=== PATIENT | male | born 1980 | race Two or more races ===

== ENCOUNTER 2023-05-03 01:34 | Observation (INO) ==
[2023-05-03 01:53] VITALS: TEMP 98.6; BMI 33.7
[2023-05-03] MEDS ORDERED: ZOFRAN INJ 4 MG VIAL IVP ONE (01:57)
[2023-05-03] MEDS ORDERED: ZOFRAN INJ 4 MG VIAL ONE (01:58)
[2023-05-03 02:02] LABS: BASOPHILS # (AUTO) 0.1 X10^3/uL (0.0-0.1); BASOPHILS % (AUTO) 0.9 % (0.2-1.0); EOSINOPHILS # (AUTO) 0.4 x10^3/uL (0.0-0.2); EOSINOPHILS % (AUTO) 2.6 % (0.9-2.9); HEMATOCRIT 46.2 % (42.0-54.0); HEMOGLOBIN 15.4 g/dL (13.5-18.0); LYMPHOCYTES # (AUTO) 6.7 X10^3/uL (1.3-2.9); LYMPHOCYTES % (AUTO) 39.6 % (21.0-51.0); MEAN CORPUSCULAR HEMOGLOBIN 26.7 pg (27.0-34.0); MEAN CORPUSCULAR HGB CONC 33.4 g/dL (33.0-35.0); MEAN CORPUSCULAR VOLUME 79.8 fL (80.0-100.0); MEAN PLATELET VOLUME 7.6 fL (7.4-11.0); MONOCYTES # (AUTO) 1.2 x10^3/uL (0.3-0.8); MONOCYTES % (AUTO) 6.8 % (0.0-13.0); NEUTROPHILS # (AUTO) 8.4 x10^3/uL (2.2-4.8); NEUTROPHILS % (AUTO) 50.1 % (42.0-75.0); PLATELET COUNT 316 X10^3/uL (150.0-450.0); RED BLOOD COUNT 5.78 X10^6/uL (4.7-6.0); RED CELL DISTRIBUTION WIDTH 13.6 % (11.6-16.5); WHITE BLOOD COUNT 16.9 X10^3/uL (3.6-10.0)
--- NOTE | 2023-05-03 02:08 | EKG ---
Test Reason : Elevated HR Blood Pressure : */* mmHG Vent. Rate : 104 BPM Atrial Rate : 104 BPM P-R Int : 178 ms QRS Dur : 112 ms QT Int : 388 ms P-R-T Axes : 72 -50 84 degrees QTc Int : 510 ms Sinus tachycardia Possible Left atrial enlargement Left anterior fascicular block Left ventricular hypertrophy with repolarization abnormality ( R in aVL , [place] product ) Abnormal ECG No previous ECGs available Confirmed by Osmani Baker ([id number]) on 05/03/2023 8:04:24 AM Referred By: Confirmed By: Osmani Baker
--- NOTE | 2023-05-03 02:10 | DR.HTN ---
HPI Time Seen Time Seen by Provider: 05/03/23 02:09 Primary Care Physician Primary Care Physician: NFD Complaints Chief Complaint Doctors Comments: Patient ingested a dec-9 gummy at approximately 01:00am today and spat it out. He states that he drank water after he spat the gummy out and had a beer eariler in the day. Patient began to feel dizzy,had palpitations,anxiety.When EMS arrived patient had BP 230's/100's. Patient was brought to the ED. He denies: headache,nausea chest pain,syncope,sob. Chief Complaint:: EMS RESPONDED TO A 911 CALL IN WHICH THE PT WAS DIZZY. UPON ARRIVAL TO ED EMS REPORTED THAT PT HAD TAKEN AN EDIBLE THC AND DRANK A BEER EARLIER IN THE DAY. PT NOW ANXIOUS, HYPERTENSIVE AND HAS ELEVATED HR. COVID-19 Coronavirus risk:travel/contact w/high risk person: No Has patient experienced Coronavirus symptoms: No Source History Provided: Patient and EMS Mode of Arrival Mode of Arrival: EMS Timing Onset of Chief Complaint: 05/03/23 PMH PMH Past Medical History: Yes Past Medical History: Hypertension Past Surgical History: No Surgical History: No History Family History History of Family Medical Conditions: No Social History Does any household member use tobacco: No Alcohol Use: Rarely Do you use any recreational Drugs:: No Lives With: Alone Lives Where: Home Travel Risk Coronavirus risk:travel/contact w/high risk person: No Has patient experienced Coronavirus symptoms: No Infectious screening In the last 2 months have you had wt loss of >10#?: NO Have you had fever, night sweats or hemotysis?: No Have you traveled outside the country in the last 6 months?: No Isolation: Standard ROS Review of Systems Constitutional: negative Chills or Fever Eyes: No Symptoms Reported ENTM: No Symptoms Reported Respiratoy: No Symptoms Reported Cardiovascular: Palpitations; negative Chest Pain Gastrointestinal/Abdominal: No Symptoms Reported; negative Nausea or Vomiting Genitourinary: No Symptoms Reported Neurological: No Symptoms Reported, Anxiety, Weakness and Dizziness; negative Headache or Numbness Musculoskeletal: No Symptoms Reported Integumentary: No Symptoms Reported Hematologic/Lymphatic: No Symptoms Reported Endocrine: No Symptoms Reported Psychiatric: No Symptoms Reported All Other Systems: Reviewed and Negative PE Vital Signs Vitals: Vital Signs Temperature 98.6 F Pulse Rate 91 Pulse Rate 94 Pulse Rate 100 Pulse Rate 97 Pulse Rate 96 Pulse Rate 97 Pulse Rate 94 Pulse Rate 86 Pulse Rate 88 Pulse Rate 99 Pulse Rate 102 Pulse Rate 102 Pulse Rate 117 Pulse Rate 129 Pulse Rate 123 Pulse Rate 126 Respiratory Rate 16 Respiratory Rate 40 Respiratory Rate 14 Respiratory Rate 23 Respiratory Rate 15 Respiratory Rate 29 Respiratory Rate 14 Respiratory Rate 0 Respiratory Rate 15 Respiratory Rate 21 Respiratory Rate 20 Respiratory Rate 22 Respiratory Rate 10 Respiratory Rate 34 Respiratory Rate 20 Respiratory Rate 22 Blood Pressure 169/89 Blood Pressure 172/89 Blood Pressure 170/88 Blood Pressure 157/81 Blood Pressure 158/81 Blood Pressure 169/88 Blood Pressure 167/76 Blood Pressure 170/82 Blood Pressure 205/102 Blood Pressure 209/100 Blood Pressure 206/103 Blood Pressure 211/117 Blood Pressure 198/104 O2 Sat by Pulse Oximetry 99 O2 Sat by Pulse Oximetry 99 O2 Sat by Pulse Oximetry 99 O2 Sat by Pulse Oximetry 98 O2 Sat by Pulse Oximetry 96 O2 Sat by Pulse Oximetry 96 O2 Sat by Pulse Oximetry 98 O2 Sat by Pulse Oximetry 96 O2 Sat by Pulse Oximetry 98 O2 Sat by Pulse Oximetry 97 O2 Sat by Pulse Oximetry 97 O2 Sat by Pulse Oximetry 97 O2 Sat by Pulse Oximetry 99 O2 Sat by Pulse Oximetry 100 O2 Sat by Pulse Oximetry 99 O2 Sat by Pulse Oximetry 100 General Limitations: No Limitations General Appearance: Alert and In No Apparent Distress Head Head Exam: Normal Inspection Eyes Eye exam: Normal Appearance ENT ENT Exam: Normal Exam Neck Neck Exam: Normal Inspection Chest Chest Inspection: Normal Inspection Respiratory Respiratory Exam: Normal Lung Sounds Bilat Respiratory Exam: Bilateral: Clear to Auscultation Cardiovascular Cardiovascular Exam: Regular Rate and Tachycardia Abdominal Exam Abdominal Exam: Normal Inspection, Normal Bowel Sounds and Soft Extremities Extremities Exam: Normal Inspection Back Back Exam: Normal Inspection Neurologic Neurological Exam: Alert and Oriented X3 Psychiatric Psychiatric Exam: Normal Affect and Normal Mood Skin Skin Exam: Warm, Dry, Intact and Normal Color MDM Differential Diagnosis Differential Diagnosis: CHF, Hypertensive emergency and Pulmonary edema Differential Diagnosis Comment: electrolyte disorder, Pneumonia COURSE Treatment Treatment: Patient was brought to a monitored room.He recieved K 60 meq Po but would not ingest it initially.Patient was therefore given K 40meq iv small amt. Patient became more alert and drank the K suspension.He has a CXR that revealed a left perihilar infiltrate.Patient was given Rocephin 2 g iv after blood cxs were drawn. Discussed case with Dr Lei who will admit patient to his service for further evaluation. [facility] Labs Reviewed 05/03/23 01:55 05/03/23 01:55 Laboratory: WBC 16.9 X10^3/uL (3.6-10.0) H 05/03/23 01:55 RBC 5.78 X10^6/uL (4.7-6.0) 05/03/23 01:55 Hgb 15.4 g/dL (13.5-18.0) 05/03/23 01:55 Hct 46.2 % (42.0-54.0) 05/03/23 01:55 MCV 79.8 fL (80.0-100.0) L 05/03/23 01:55 MCH 26.7 pg (27.0-34.0) L 05/03/23 01:55 MCHC 33.4 g/dL (33.0-35.0) 05/03/23 01:55 RDW 13.6 % (11.6-16.5) 05/03/23 01:55 Plt Count 316 X10^3/uL (150.0-450.0) 05/03/23 01:55 MPV 7.6 fL (7.4-11.0) 05/03/23 01:55 Neut % (Auto) 50.1 % (42.0-75.0) 05/03/23 01:55 Lymph % (Auto) 39.6 % (21.0-51.0) 05/03/23 01:55 [place] % (Auto) 6.8 % (0.0-13.0) 05/03/23 01:55 Eos % (Auto) 2.6 % (0.9-2.9) 05/03/23 01:55 Baso % (Auto) 0.9 % (0.2-1.0) 05/03/23 01:55 Neut # (Auto) 8.4 x10^3/uL (2.2-4.8) H 05/03/23 01:55 Lymph # (Auto) 6.7 X10^3/uL (1.3-2.9) H 05/03/23 01:55 [place] # (Auto) 1.2 x10^3/uL (0.3-0.8) H 05/03/23 01:55 Eos # (Auto) 0.4 x10^3/uL (0.0-0.2) H 05/03/23 01:55 Baso # (Auto) 0.1 X10^3/uL (0.0-0.1) 05/03/23 01:55 Absolute Nucleated RBC 0.0 /100WBC 05/03/23 01:55 Sodium 137 mmol/L (136-145) 05/03/23 01:55 Corrected Sodium 139 mmol/L (136-145) 05/03/23 01:55 Potassium 2.6 mmol/L (3.5-5.1) L* 05/03/23 01:55 Chloride 99 mmol/L (98-107) 05/03/23 01:55 Carbon Dioxide 26.7 mmol/L (21-32) 05/03/23 01:55 BUN 16 mg/dL (7-18) 05/03/23 01:55 Creatinine 1.16 mg/dL (0.70-1.30) 05/03/23 01:55 Est GFR (MDRD) Af Amer > 60 (>60) 05/03/23 01:55 Est GFR (MDRD) Non-Af > 60 (>60) 05/03/23 01:55 Glucose 179 mg/dL (65-99) H 05/03/23 01:55 Lactic Acid 3.5 mmol/L (0.4-2.0) H 05/03/23 01:55 Calcium 7.8 mg/dL (8.5-10.1) L 05/03/23 01:55 Corrected Calcium TNP 05/03/23 01:55 Magnesium 1.9 mg/dL (2.0-2.9) L 05/03/23 01:55 Total Bilirubin 1.20 mg/dL (0.2-1.0) H 05/03/23 01:55 AST 18 Units/L (15-37) 05/03/23 01:55 ALT 22 Units/L (12-78) 05/03/23 01:55 Alkaline Phosphatase 81 Units/L (46-116) 05/03/23 01:55 Creatine Kinase 263 Units/L (39-308) 05/03/23 01:55 Troponin I High Sens 13.7 ng/L (4.0-60.0) 05/03/23 01:55 Total Protein 7.1 g/dL (6.4-8.2) 05/03/23 01:55 Albumin 4.1 g/dL (3.4-5.0) 05/03/23 01:55 Globulin 3.0 g/dL (2.5-4.5) 05/03/23 01:55 Albumin/Globulin Ratio 1.4 Ratio (1.1-2.1) 05/03/23 01:55 Ethyl Alcohol mg/dL < 3.0 mg/dL (0-19.9) 05/03/23 01:55 Opioid Opioid Risk Tool Age (Marcin box if 16-45): Yes History of Preadolescent Sexual Abuse: No Total: 1 Total Score Risk Category: Low Risk Copyright: [place] ODOM predicting aberrant behaviors Discharge Plan Diagnosis Discharge Problem: Pneumonia, Mild tetrahydrocannabinol (THC) abuse, Acute hypokalemia Discharge Plan Patient Disposition: 09 ADMITTED INPATIENT Condition: Stable Orders to Discharge Patient Discharge Orders: Transfer (Routine); Ordered 05/03/23 Ordered By: Aura Dawn
[2023-05-03 02:15] LABS: ALANINE AMINOTRANSFERASE 22 Units/L (12-78); ALBUMIN 4.1 g/dL (3.4-5.0); ALKALINE PHOSPHATASE 81 Units/L (46-116); ASPARTATE AMINO TRANSFERASE 18 Units/L (15-37); BLOOD UREA NITROGEN 16 mg/dL (7-18); CALCIUM 7.8 mg/dL (8.5-10.1); CARBON DIOXIDE 26.7 mmol/L (21-32); CHLORIDE 99 mmol/L (98-107); COR NA(FOR HYPERGLY) 139 mmol/L (136-145); CREATINE KINASE 263 Units/L (39-308); CREATININE 1.16 mg/dL (0.70-1.30); GLUCOSE 179 mg/dL (65-99); LACTIC ACID 3.5 mmol/L (0.4-2.0); SODIUM 137 mmol/L (136-145); TOTAL PROTEIN 7.1 g/dL (6.4-8.2); eGFR NON BLACK RACES > 60 (>60)
[2023-05-03] MEDS ORDERED: NORMODYNE INJ 20 MG VIAL IVP ONE (02:16)
[2023-05-03] MEDS ORDERED: NORMODYNE INJ 20 MG VIAL ONE (02:17)
[2023-05-03 02:18] LABS: POTASSIUM 2.6 mmol/L (3.5-5.1)
--- NOTE | 2023-05-03 02:19 | RAD ---
HISTORYHTN, CHEST PAINS Relevant Clinical InformationSTUDYCHEST, 1 VIEWCOMPARISONNoneFINDINGSThe trachea is midline. The cardiac silhouette is unremarkable. Left perihilar infiltrate. No pleural effusion or pneumothorax.. The bony thorax is unremarkable.IMPRESSIONLeft perihilar infiltrate..Electronically signed by: Mauri Carvajal (May 03, 2023 02:18:04)
[2023-05-03] MEDS ORDERED: POTASSIUM CHLORIDE LIQ PO ONE (02:23)
[2023-05-03] MEDS ORDERED: POTASSIUM CHLORIDE LIQ ONE (02:25)
[2023-05-03] MEDS ORDERED: APRESOLINE INJ 20 MG VIAL ONE (02:41)
[2023-05-03] MEDS ORDERED: APRESOLINE INJ 20 MG VIAL IVP ONE (02:46)
[2023-05-03] MEDS ORDERED: ROCEPHIN VIAL 2 GRAMS 2 G in NS 100 ML IV 100 ML IV ONE (03:00)
[2023-05-03] MEDS ORDERED: ROCEPHIN VIAL 2 GRAMS ONE (03:03)
[2023-05-03] MEDS ORDERED: NS 100 ML IV 100 ML ONE (03:03)
[2023-05-03] MEDS ORDERED: NS + KCL 40 MEQ/L 1,000 ML IV ONE (03:14)
[2023-05-03] MEDS ORDERED: NS + KCL 40 MEQ/L 1,000 ML IV SCH ×2 (03:22→08:00)
[2023-05-03 05:12] VITALS: RESP 13
[2023-05-03 05:15] LABS: BILIRUBIN,URINE NEGATIVE (NEGATIVE); BLOOD/HEMOGLOBIN,URINE NEGATIVE (NEGATIVE); GLUCOSE, URINE NEGATIVE (NEGATIVE); KETONES,URINE NEGATIVE (NEGATIVE); LEUKOCYTE ESTERASE ,URINE NEGATIVE (NEGATIVE); NITRITES,URINE NEGATIVE (NEGATIVE); PROTEIN,URINE 3+ (NEGATIVE); UROBILINOGEN,URINE NORMAL (NORMAL)
[2023-05-03 05:20] LABS: APPEARANCE,URINE CLEAR (CLEAR); BACTERIA,URINE NEGATIVE /HPF (NEGATIVE); COLOR,URINE YELLOW (YELLOW); RBC,URINE 0-2 /HPF (0-3); SQUAMOUS EPITHELIAL CELL,UR NEGATIVE /HPF (NEGATIVE)
[2023-05-03 05:21] LABS: HYALINE CASTS, URINE RARE /LPF (NEGATIVE)
[2023-05-03] MEDS ORDERED: MAG-OX TAB PO SCH (07:00)
[2023-05-03] MEDS: ROCEPHIN VIAL 2 GRAMS 2 G in NS 100 ML IV 100 ML IV SCH ×2 (07:20→08:12)
[2023-05-03 08:06] VITALS: BP 156/89
[2023-05-03 08:42] LABS: POTASSIUM 3.7 mmol/L (3.5-5.1)
[2023-05-03 08:43] VITALS: PULSE 85; O2SAT 98
[2023-05-03 08:52] LABS: LACTIC ACID 2.5 mmol/L (0.4-2.0)
[2023-05-03] MEDS ORDERED: PULMICORT NEB TX 0.5 MG NEB SCH (09:00)
[2023-05-03] MEDS ORDERED: DUONEB 0.5 MG/3 MG (3 mL) NEB SCH (09:00)
--- NOTE | 2023-05-03 09:30 | DR.SSS ---
SHORT STAY SUMMARY Admission Date Date of Admission: 05/03/23 Discharge Date Discharge Date: 05/03/23 Admission Diagnoses Admission Diagnoses: Mild thc abuse Acute Hypokalemia Pneumonia Hypertension Discharge Diagnoses Discharge Diagnoses: Mild thc abuse Acute Hypokalemia Pneumonia Hypertension Chief Complaint Chief Complaint: Palpitations, Panic attack Fatigue History of Present Illness History of Present Illness: Patient is a 42-year-old male presenting after eating a THC gummy. After eating gummy he started to feel anxious, palpitations, some shortness of breath, and weakness. He became nervous and called 911, EMS brought him to the ER. Past Medical History Past Medical History: Hypertension Past Surgical History Surgical History: No History Allergies Allergies Allergy/AdvReac Type Severity Reaction Status Date / Time No Known Allergies Allergy Verified 05/03/23 01:53 Medications Home Medications: No Known Allergies Allergy (Verified 05/03/23 01:53) New Prescriptions amlodipine 5 mg tablet (Norvasc) 5 mg PO QDAY 30 days #30 tabs 05/03/23 [Rx] levofloxacin 750 mg tablet 750 mg PO Q24H 5 days #5 tabs 05/03/23 [Rx] Social History Does patient currently use any type of tobacco product: No Have you used tobacco products in the last 12 months: No Type of Tobacco Use: None Does any household member use tobacco: No Alcohol Use: None Drug Use: None Review of Systems Constitutional: No Symptoms Reported Eyes: No Symptoms Reported ENT: No Symptoms Reported Respiratory: No Symptoms Reported Cardiovascular: No Symptoms Reported Gastrointestinal: No Symptoms Reported Genitourinary: No Symptoms Reported Musculoskeletal: No Symptoms Reported Skin: No Symptoms Reported Neurological: No Symptoms Reported Physical Exam Vital Signs: Last Vital Signs Temp 98.6 F 05/03/23 01:35 Pulse 85 05/03/23 08:40 Resp 13 05/03/23 08:00 BP 156/89 05/03/23 08:00 Pulse Ox 98 05/03/23 08:40 O2 Del Method Room Air 05/03/23 08:00 Oriented: Normal Eyes: Normal Ear: Normal Nose: Normal Throat: Normal Respiratory: Clear Throughout Cardiovascular: Normal : Normal Auscultation: Bowel Sounds: Normal Palpation: Normal Tenderness: Normal Skin: Normal Musculoskeletal: Normal Psychiatric: Anxiety Mood Description: Calm Affect: Normal Speech Pattern: Clear Labs Labs: Laboratory Last Values WBC 16.9 X10^3/uL (3.6-10.0) H 05/03/23 01:55 RBC 5.78 X10^6/uL (4.7-6.0) 05/03/23 01:55 Hgb 15.4 g/dL (13.5-18.0) 05/03/23 01:55 Hct 46.2 % (42.0-54.0) 05/03/23 01:55 MCV 79.8 fL (80.0-100.0) L 05/03/23 01:55 MCH 26.7 pg (27.0-34.0) L 05/03/23 01:55 MCHC 33.4 g/dL (33.0-35.0) 05/03/23 01:55 RDW 13.6 % (11.6-16.5) 05/03/23 01:55 Plt Count 316 X10^3/uL (150.0-450.0) 05/03/23 01:55 MPV 7.6 fL (7.4-11.0) 05/03/23 01:55 Neut % (Auto) 50.1 % (42.0-75.0) 05/03/23 01:55 Lymph % (Auto) 39.6 % (21.0-51.0) 05/03/23 01:55 [place] % (Auto) 6.8 % (0.0-13.0) 05/03/23 01:55 Eos % (Auto) 2.6 % (0.9-2.9) 05/03/23 01:55 Baso % (Auto) 0.9 % (0.2-1.0) 05/03/23 01:55 Neut # (Auto) 8.4 x10^3/uL (2.2-4.8) H 05/03/23 01:55 Lymph # (Auto) 6.7 X10^3/uL (1.3-2.9) H 05/03/23 01:55 [place] # (Auto) 1.2 x10^3/uL (0.3-0.8) H 05/03/23 01:55 Eos # (Auto) 0.4 x10^3/uL (0.0-0.2) H 05/03/23 01:55 Baso # (Auto) 0.1 X10^3/uL (0.0-0.1) 05/03/23 01:55 Absolute Nucleated RBC 0.0 /100WBC 05/03/23 01:55 Sodium 137 mmol/L (136-145) 05/03/23 01:55 Corrected Sodium 139 mmol/L (136-145) 05/03/23 01:55 Potassium 3.7 mmol/L (3.5-5.1) 05/03/23 08:29 Chloride 99 mmol/L (98-107) 05/03/23 01:55 Carbon Dioxide 26.7 mmol/L (21-32) 05/03/23 01:55 BUN 16 mg/dL (7-18) 05/03/23 01:55 Creatinine 1.16 mg/dL (0.70-1.30) 05/03/23 01:55 Est GFR (MDRD) Af Amer > 60 (>60) 05/03/23 01:55 Est GFR (MDRD) Non-Af > 60 (>60) 05/03/23 01:55 Glucose 179 mg/dL (65-99) H 05/03/23 01:55 Lactic Acid 2.5 mmol/L (0.4-2.0) H 05/03/23 05:04 Calcium 7.8 mg/dL (8.5-10.1) L 05/03/23 01:55 Corrected Calcium TNP 05/03/23 01:55 Magnesium 1.9 mg/dL (2.0-2.9) L 05/03/23 01:55 Total Bilirubin 1.20 mg/dL (0.2-1.0) H 05/03/23 01:55 AST 18 Units/L (15-37) 05/03/23 01:55 ALT 22 Units/L (12-78) 05/03/23 01:55 Alkaline Phosphatase 81 Units/L (46-116) 05/03/23 01:55 Creatine Kinase 263 Units/L (39-308) 05/03/23 01:55 Troponin I High Sens 13.7 ng/L (4.0-60.0) 05/03/23 01:55 Total Protein 7.1 g/dL (6.4-8.2) 05/03/23 01:55 Albumin 4.1 g/dL (3.4-5.0) 05/03/23 01:55 Globulin 3.0 g/dL (2.5-4.5) 05/03/23 01:55 Albumin/Globulin Ratio 1.4 Ratio (1.1-2.1) 05/03/23 01:55 Specimen Type Clean catch urine 05/03/23 05:04 Urine Color Yellow (YELLOW) 05/03/23 05:04 Urine Appearance Clear (CLEAR) 05/03/23 05:04 Urine pH 7.0 (5.0 - 8.0) 05/03/23 05:04 Ur Specific [place] 1.010 (1.000-1.030) 05/03/23 05:04 Urine Protein 3+ (NEGATIVE) 05/03/23 05:04 Urine Glucose (UA) Negative (NEGATIVE) 05/03/23 05:04 Urine Ketones Negative (NEGATIVE) 05/03/23 05:04 Urine Blood Negative (NEGATIVE) 05/03/23 05:04 Urine Nitrite Negative (NEGATIVE) 05/03/23 05:04 Urine Bilirubin Negative (NEGATIVE) 05/03/23 05:04 Urine Urobilinogen Normal (NORMAL) 05/03/23 05:04 Ur Leukocyte Esterase Negative (NEGATIVE) 05/03/23 05:04 Urine RBC 0-2 /HPF (0-3) 05/03/23 05:04 Urine WBC None seen /HPF (0-5) 05/03/23 05:04 Ur Squamous Epith Cells Negative /HPF (NEGATIVE) 05/03/23 05:04 Amorphous Sediment Trace /HPF (NEGATIVE) 05/03/23 05:04 Urine Bacteria Negative /HPF (NEGATIVE) 05/03/23 05:04 Hyaline Casts Rare /LPF (NEGATIVE) 05/03/23 05:04 Ur Culture Indicated? No/not indicated 05/03/23 05:04 Urine Opiates Screen Negative (NEG=<300) 05/03/23 05:04 Urine Methadone Screen Negative (NEG=<300) 05/03/23 05:04 Ur Barbiturates Screen Negative (NEG=<200) 05/03/23 05:04 Ur Phencyclidine Scrn Negative (NEG=<25) 05/03/23 05:04 Ur Amphetamines Screen Negative (NEG=<1000) 05/03/23 05:04 U Benzodiazepines Scrn Negative (NEG=<200) 05/03/23 05:04 Urine Cocaine Screen Negative (NEG=<300) 05/03/23 05:04 U Marijuana (THC) Screen Positive (NEG=<50) A 05/03/23 05:04 Ethyl Alcohol mg/dL < 3.0 mg/dL (0-19.9) 05/03/23 01:55 Assessment/Plan (1) Mild tetrahydrocannabinol (THC) abuse: (2) Pneumonia: (3) Hypertension: (4) Acute hypokalemia: Hospital Course Hospital Course: Patient admitted for mild THC abuse, pneumonia, hypertension, and acute hypokalemia. Labs/imaging: WBC 16.9, hemoglobin 15.4, platelets 316, sodium 137, potassium 2.6, creatinine 1.16, glucose 179, UDS positive for THC, respiratory panel pending, chest x-ray revealed a left perihilar infiltrate. Patient was started on IV fluids normal saline and had potassium repleted per protocol. He was also given dose of antibiotics Rocephin. He was noted to be hypertensive and required IV hydralazine. On exam patient appears to be feeling significantly better. He denies any symptoms that would suggest pneumonia however due to chest x-ray and elevated leukocytosis will treat outpatient with Levaquin. Will start on Norvasc out that he can continue outpatient. Potassium 3.7 after being repleted. Patient is otherwise back to baseline and is ready to go home. Discussed with patient to refrain from using THC products. Will discharge patient in stable condition, instructed to follow-up with PCP in 1 week. Discharge Medications Discharge Medications: Home Medication List amlodipine 5 mg tablet (Norvasc) 5 mg PO QDAY 30 days #30 tabs 05/03/23 [Rx] levofloxacin 750 mg tablet 750 mg PO Q24H 5 days #5 tabs 05/03/23 [Rx] Prescriptions: amlodipine [Norvasc] Do,Marshall levofloxacin Marshall Lei Discharge Disposition Discharge Disposition: Home Discharge Plan Discharge Plan Patient Disposition: HOME, SELF-CARE Condition: Stable Health Concerns: Post Hospitalization: new medications and changes needed to prevent readmission or further decline. Pt educated and given instructions on all concerns. Plan of Treatment: Continue with present treatment and follow up plan. Pt is to keep follow up appointment as instructed and take medications as ordered. Prescriptions: New levofloxacin 750 mg tablet 750 mg PO Q24H 5 Days Qty: 5 0RF amlodipine [Norvasc] 5 mg tablet 5 mg PO QDAY 30 Days Qty: 30 0RF Orders to Discharge Patient Discharge Orders: Discharge (Routine); Ordered 05/03/23 Ordered By: Marshall Lei Follow ups/Referrals Follow ups/Referrals: NFD,None [Primary Care Provider] - 3 days Instructions Stand Alone Forms: Excuse From Work or School, Post Hospital Follow Up Care
== END 2023-05-03 10:00 | disposition home or self-care (01) ==
LOC: ER 01:34 → U 01:34
PROVIDERS: ADMIT Family Medicine; ATTEND Family Medicine
DX: F41.8 Other specified anxiety disorders; F12.10 Cannabis abuse, uncomplicated; J18.8 Other pneumonia, unspecified organism; R42 Dizziness and giddiness; Y92.9 Unspecified place or not applicable; I10 Essential (primary) hypertension; E87.6 Hypokalemia; T40.715A Adverse effect of cannabis, initial encounter; R00.2 Palpitations; X58.XXXA Exposure to other specified factors, initial encounter